=== PATIENT | female | born 1985 ===

== ENCOUNTER 2022-04-16 18:18 | Emergency (ER) | payer OTHER ==
[2022-04-16] MEDS ORDERED: Lidocaine 1% 5 ML VIAL INJECT ONE (22:01)
== END 2022-04-16 22:51 | disposition home or self-care (01) ==
LOC: MW.ED 18:18
DX: S61.211A Laceration without foreign body of left index finger without damage to nail, initial encounter (principal); W26.8XXA Contact with other sharp object(s), not elsewhere classified, initial encounter; Y99.0 Civilian activity done for income or pay
CPT/HCPCS: 12001; 99283-25

== ENCOUNTER 2022-04-18 16:56 | Emergency (ER) | payer OTHER | END 2022-04-18 19:06 | disposition home or self-care (01) | LOC: MW.ED 16:56 | DX: S61.211A Laceration without foreign body of left index finger without damage to nail, initial encounter (principal); W26.8XXA Contact with other sharp object(s), not elsewhere classified, initial encounter | CPT/HCPCS: 99282 ==

== ENCOUNTER 2022-04-27 20:57 | Emergency (ER) | payer OTHER | END 2022-04-27 21:30 | disposition home or self-care (01) | LOC: MW.ED 20:57 | DX: Z53.21 Procedure and treatment not carried out due to patient leaving prior to being seen by health care provider (principal) ==

== ENCOUNTER 2022-08-26 09:15 | Emergency (ER) | payer OTHER ==
[2022-08-26] MEDS ORDERED: Erythromycin Base 0.5% Ophth Oint 1 GM Tube EYEBOTH ONE (09:45)
== END 2022-08-26 11:02 | disposition home or self-care (01) ==
LOC: MW.ED 09:15
DX: H10.213 Acute toxic conjunctivitis, bilateral (principal)
CPT/HCPCS: 99283; A9270